=== PATIENT | male | born 1945 | race Caucasian/White ===

== ENCOUNTER 2024-07-03 08:16 | Day surgery (SDC) | payer MEDICARE, OTHER, SELFPAY ==
[2024-07-03] VITALS (11 sets, daily range): BP systolic 109–134; BP diastolic 65–93
[2024-07-03 08:38] LABS: Hematocrit 38.4 % (39.0-52.0); Hemoglobin 13.2 g/dL (13.0-18.0); Mean Corp Hgb Conc. 34.4 g/dL (33.0-37.0); Mean Corpuscular Hgb 31.4 pg (27.0-31.0); Mean Corpuscular Volume 91.2 fL (80.0-94.0); Mean Platelet Volume 10.5 fL (7.4-10.4); Platelet Count 154 10^3/uL (130-400); Red Blood Cell Count 4.21 10^6/uL (4.70-6.10); Red Cell Dist. Width 12.4 % (11.5-14.5); White Blood Cell Count 8.7 10^3/uL (4.8-10.8)
[2024-07-03 08:52] LABS: Blood Urea Nitrogen 23 mg/dl (9-20); Carbon Dioxide 27 mmol/L (22-30); Chloride 104 mmol/L (98-107); Glucose 111 mg/dl (70-99); Potassium 5.1 mmol/L (3.5-5.1); Sodium 140 mmol/L (135-145); eGFR > 60.00
--- NOTE | 2024-07-03 11:17 | ITS.CL.PACE ---
Addendum entered and electronically signed by Levi Schroeder MD 07/11/24 15:22:
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
Original Note:
Patient Services Representative - Pacemaker Implant
Pacemaker Implant
Procedure Report:
Date of Procedure: 07/03/2024
Patient : 1945
Procedure: Pacemaker Implantation.
Indication: >3 sec pause with near syncope (6.7s pauses documented on linq monitor)
�
Implants:�
Pulse Generator: Medtronic; Model# W1DR01; SN: [id number]
RA Lead: Medtronic; Model# 4574; SN: [id number]
RV Lead: Medtronic; Model# 4074; SN: [id number]
�
Technique: A time out was performed. The procedure site was identified. The patient was anesthetized by the anesthesia service. Preoperative sedation was administered. The patient was prepped and draped in the usual fashion. Local anesthetic was
applied to the left prepectoral subcutaneous tissue. A 3 inch incision was made 2.5 inches below the left clavicle. A subcutaneous pocket was created with blunt and sharp dissection and hemostasis controlled with Bovie cautery. The left axillary
vein was accessed within the pocket without difficulty. Hemostasis was excellent. The leads were introduced with 7 Fr hemostatic peel away introducer sheaths. The ventricular lead was placed at the right ventricular apex. The atrial lead was placed
in the right atrial appendage. 10 volt pacing did not capture the diaphragm. The leads were secured to the pectoralis muscle and fascia. The leads were appropriately attached to the device. The pocket was irrigated with antibiotic solution. The
device and leads were placed in the pocket. The incision was closed in three layers with absorbable suture. The estimated blood loss was minimal. There were no complications.��
Pulse fluoroscopy 5.3 minutes and 10.13 mGy
Once the pacemaker was placed a stab incision was made over the ILR implant and the device was identified and removed. The incision was closed with 3.0 Vicryl suture and Steri-Strips.
Lead Analysis:
RA lead: P: 4.0 mV; Threshold: 0.625 V @ 0.5� ms; Impedance:684 ohms.
RV lead: R: 10.8 mV; Threshold: 0.5 V @ 0.5� ms; Impedance: 893 ohms.
�
Final Programming: AAIR�DDDR 60-130 bpm
�
Conclusion: Uncomplicated Medtronic pacemaker implant.
�
Recommendation: Routine post pacemaker care.
�
--- NOTE | 2024-07-03 13:52 | W.PN.UPDATE ---
Update Note
Progress Note Update
79 yo WM s/p Linq explant and DC PPM implant for SSS (same day). He denies cp, sob, leonard clears, voiding, site stable, EKG SR 1deg AVB, CXR no PTX. He will continue plavix resume tonight. Activity restrictions reviewed. He has inc check in 1 week. He
is for d/c home after 4pm after IV Abx.
[2024-07-03] MEDS: ANCEF 5 IV (16:10)
== END 2024-07-03 16:30 | disposition home or self-care (01) ==
LOC: CATH 08:16
PROVIDERS: ATTENDING PHYSICIAN Internal Medicine Cardiovascular Disease; FAMILY PHYSICIAN Family Medicine; OTHER PHYSICIAN Internal Medicine Cardiovascular Disease
DX: I49.5 Sick sinus syndrome (principal); R55 Syncope and collapse; Z79.02 Long term (current) use of antithrombotics/antiplatelets; Z88.8 Allergy status to other drugs, medicaments and biological substances; I10 Essential (primary) hypertension; Z86.73 Personal history of transient ischemic attack (TIA), and cerebral infarction without residual deficits; I35.0 Nonrheumatic aortic (valve) stenosis; I25.10 Atherosclerotic heart disease of native coronary artery without angina pectoris; Z09 Encounter for follow-up examination after completed treatment for conditions other than malignant neoplasm; Z79.899 Other long term (current) drug therapy
CPT/HCPCS: 33208; 33286; 71045; 80048; 85027; 93005; C1785; C1892; C1898; Q9967